=== PATIENT | male | born 1955 | race Caucasian/White ===

== ENCOUNTER 2016-12-26 14:17 | Emergency (ER) | payer BC ==
[2016-12-26 14:26] VITALS: TEMP 98
--- NOTE | 2016-12-26 15:06 | C.PDOC ---
History Of Present Illness 61 y/o male with PMHx of HTN, Inguinal Hernia and Strokes presents to ED with complaints of left sided headache described as "electric shocks" for 3 days. Patient states headache last few seconds and has 6 episodes an hour with associated nausea and left sided facial numbness. Patient denies photophobia, dizziness, fever, chills, abdominal pain or any other complaints at this time. Chief Complaint (Nursing): Headache History Per: Patient History/Exam Limitations: no limitations Onset/Duration Of Symptoms: Days Past Medical History Reviewed: Historical Data, Nursing Documentation, Vital Signs Vital Signs: Last Vital Signs Temp 98 F 12/26/16 15:33 Pulse 108 H 12/26/16 15:33 Resp 18 12/26/16 15:33 BP 139/100 H 12/26/16 15:33 Pulse Ox 97 12/26/16 15:49 - Medical History PMH: HTN Surgical History: Cholecystectomy Family History: States: No Known Family Hx - Social History Hx Tobacco Use: No Hx Alcohol Use: No Hx Substance Use: No - Immunization History Hx Tetanus Toxoid Vaccination: No Hx Influenza Vaccination: Yes Hx Pneumococcal Vaccination: Yes Review Of Systems Except As Marked, All Systems Reviewed And Found Negative. Constitutional: Negative for: Fever, Chills Eyes: Negative for: Vision Change Gastrointestinal: Positive for: Nausea. Negative for: Vomiting, Abdominal Pain Neurological: Positive for: Numbness, Headache. Negative for: Weakness, Dizziness Physical Exam - Physical Exam Appears: Non-toxic, No Acute Distress Skin: Warm, Dry, No Rash Head: Normacephalic Eye(s): bilateral: Normal Inspection, EOMI Oral Mucosa: Moist Neck: Normal ROM, Supple Chest: Symmetrical Cardiovascular: Rhythm Regular Respiratory: Normal Breath Sounds, No Rales, No Rhonchi, No Wheezing Gastrointestinal/Abdominal: Soft, No Tenderness, No Guarding, No Rebound Extremity: Normal ROM, No Pedal Edema Pulses: Left Radial: Normal, Right Radial: Normal Neurological/Psych: Oriented x3, Normal Speech, No Normal Sensation (left sided face decrease sensation) ED Course And Treatment O2 Sat by Pulse Oximetry: 97 (RA) Pulse Ox Interpretation: Normal Medical Decision Making Medical Decision Making: Pt with classical presentation for trigeminal neuralgia.Will initiate tegretol tx,refer to neurology for f/u Disposition - Disposition Referrals: Brannon Fields MD [Staff Provider] - Disposition: HOME/ ROUTINE Disposition Time: 15:06 Condition: FAIR Additional Instructions: take tegretol as prescribed,f/u with neurology Prescriptions: carBAMazepine Susp [TEGretol] 100 mg PO BID #20 tab Forms: [facility] (Kazakh) Print Language: MOLDOVAN - Clinical Impression Clinical Impression: Trigeminal neuralgia of left side of face - Scribe Statement The provider has reviewed the documentation as recorded by the Sandeepibbeth Franks All medical record entries made by the Lorenzo were at my direction and personally dictated by me. I have reviewed the chart and agree that the record accurately reflects my personal performance of the history, physical exam, medical decision making, and the department course for this patient. I have also personally directed, reviewed, and agree with the discharge instructions and disposition.
[2016-12-26 15:34] VITALS: BP 139/100; PULSE 108; RESP 18
[2016-12-26 15:47] VITALS: O2SAT 97
== END 2016-12-26 15:34 | disposition home or self-care (01) ==
LOC: C.ER 14:17
DX: G50.0 Trigeminal neuralgia (principal); I10 Essential (primary) hypertension